=== PATIENT | female | born 2000 | race Caucasian/White ===

== ENCOUNTER 2023-12-27 08:22 | Day surgery (SDC) | payer OTHER ==
[2023-12-21 10:48] LABS: URINE APPEARANCE Cloudy; URINE BILIRRUBIN Negative (NEGATIVE); URINE BLOOD Negative; URINE COLOR Dark Yellow; URINE GLUCOSE Negative (NEGATIVE); URINE LEUKOCYTE Trace; URINE NITRATE Negative; URINE PROTEIN Trace (NEGATIVE)
[2023-12-21 10:52] LABS: URINE BACTERIA 6432.1 uL (0.0-1933); URINE EPITHELIAL CELLS 58.7 uL (0.0-38.8); URINE WBC 40.9 uL (0.0-23.2)
[2023-12-21 10:55] LABS: HEMATOCRIT 38.6 % (36.0-45.00); HEMOGLOBIN 12.6 g/dL (12.0-15.00); MEAN CELL VOLUME 85.3 fL (80.00-100.00); MEAN CORPUSCULAR HEMOGLOBIN 27.9 pg (27.00-32.0); MEAN CORPUSCULAR HGB CONC 32.7 g/dl (32.0-36.0); PLATELET COUNT 207 K/uL (150-450); RED BLOOD COUNT 4.52 M/uL (4.00-6.00)
[2023-12-21 11:09] LABS: INR 0.99; PARTIAL THROMBOPLASTIN TIME 27.6 SECONDS (22.0-34.0); PROTHROMBIN TIME 10.4 SECONDS (9.0-11.5)
[2023-12-21 11:33] LABS: ALBUMIN 3.7 gm/dL (3.4-5.0); BILIRUBIN TOTAL 1.56 mg/dL (0.3-1.2); CALCIUM 8.9 mg/dL (8.5-10.1); CREATININE SERUM 0.8 mg/dL (0.55-1.02); GFR 89.69; GLOBULINA 3.2 G/DL (2.4-3.5); POTASSIUM 3.95 mEq/L (3.5-5.1); TOTAL PROTEIN 6.9 gm/dL (6.4-8.2)
[2023-12-21 11:46] LABS: URINE RBC 1.3 uL (0.0-20.8)
[2023-12-21 11:48] LABS: URINE CRYSTALS FEW /HPF
[2023-12-27] MEDS ORDERED: LIDOCAINE HCL 1% 20ML VIAL IJ ONE (13:56)
[2023-12-27] MEDS ORDERED: CEFAZOLIN SODIUM 1,000 MG VIAL ONE ×2 (13:57→16:01)
[2023-12-27] MEDS ORDERED: LIDOCAINE HCL 1%/EPINEPHRINE 20ML VIAL IJ ONE (14:20)
[2023-12-27] MEDS ORDERED: CEFAZOLIN SODIUM 1,000 MG VIAL IV SCH (15:30)
== END 2023-12-27 17:10 | disposition home or self-care (01) ==
LOC: CIR.AMB 08:22
PROVIDERS: ATTEND Specialist
DX: D21.6 Benign neoplasm of connective and other soft tissue of trunk, unspecified (principal)